=== PATIENT | female | born 1935 | race Caucasian/White ===

== ENCOUNTER 2016-08-20 20:57 | Emergency (ER) | payer MEDICARE, OTHER | END 2016-08-21 01:07 | disposition home or self-care (01) | LOC: ER 20:57 | DX: R07.2 Precordial pain (principal); I10 Essential (primary) hypertension; Z90.89 Acquired absence of other organs; Z90.710 Acquired absence of both cervix and uterus; Z79.899 Other long term (current) drug therapy | CPT/HCPCS: 36415 ==

== ENCOUNTER 2016-10-17 20:13 | Emergency (ER) | payer MEDICARE, OTHER | END 2016-10-17 21:35 | disposition short-term general hospital (02) | LOC: ER 20:13 | DX: I63.9 Cerebral infarction, unspecified (principal); I10 Essential (primary) hypertension; Z90.710 Acquired absence of both cervix and uterus; Z79.899 Other long term (current) drug therapy | CPT/HCPCS: 36415; 96374; 96375; 96376; J2997 ==